=== PATIENT | male | born 1970 | race Caucasian/White ===

== ENCOUNTER 2021-01-02 14:57 | Emergency (ER) | payer OTHER ==
[~2021-01-02] VITALS: Ht 175.3 cm; Wt 105.2 kg
[2021-01-02 15:15] VITALS: BP 130/79
[2021-01-02] MEDS ORDERED: NAPR-1704 PO (16:03)
[2021-01-02 16:23] VITALS: BP 130/79
== END 2021-01-02 16:23 | disposition home or self-care (01) ==
LOC: MED 14:57
DX: S92.354A Nondisplaced fracture of fifth metatarsal bone, right foot, initial encounter for closed fracture (principal); Z79.899 Other long term (current) drug therapy; X58.XXXA Exposure to other specified factors, initial encounter; Y93.89 Activity, other specified; Y92.89 Other specified places as the place of occurrence of the external cause; Y99.8 Other external cause status
CPT/HCPCS: 29515; 73630; 99283